=== PATIENT | male | born 1980 | race Caucasian/White ===

== ENCOUNTER 2020-02-11 19:50 | Emergency (ER) | payer BC, OTHER ==
[~2020-02-11] VITALS: Ht 188 cm; Wt 104.0 kg
[2020-02-11] MEDS ORDERED: ONDANSETRON 2MG/ML, 2ML ONE (20:21)
[2020-02-11] MEDS ORDERED: MORPHINE SULFATE 4 MG/ML, 1ML ONE ×2 (20:21→20:57)
[2020-02-11] MEDS ORDERED: ONDANSETRON 2MG/ML, 2ML IVPush ONE (20:30)
[2020-02-11] MEDS ORDERED: SODIUM CHLORIDE FLUSH 10ML SYR IVF ONE (20:30)
[2020-02-11] MEDS ORDERED: LIDOCAINE 2%, 10ML INFIL ONE (20:30)
[2020-02-11] MEDS ORDERED: SODIUM CHLORIDE 0.9% 1,000ML IVBOLUS ONE (20:30)
[2020-02-11] MEDS ORDERED: PROPOFOL 10 MG/ML, 20ML IVPush ONE (20:30)
[2020-02-11] MEDS ORDERED: PROPOFOL 10 MG/ML, 20ML ONE (20:39)
[2020-02-11] MEDS: MORPHINE SULFATE 4 MG/ML, 1ML IVPush PRN ×2 (20:39→21:03)
[2020-02-11] MEDS ORDERED: LIDOCAINE-MPF 2% ,5ML ONE (20:42)
[2020-02-11] MEDS ORDERED: DIPH,PERTUSS(ACELL),TET VAC/PF 0.5 ML IM-VACC ONE ×2 (21:00→21:02)
[2020-02-11 21:53] VITALS: BP 130/74
== END 2020-02-11 21:56 | disposition home or self-care (01) ==
LOC: ED 21:55
DX: S43.084A Other dislocation of right shoulder joint, initial encounter (principal); W18.30XA Fall on same level, unspecified, initial encounter; Y93.89 Activity, other specified; Y92.410 Unspecified street and highway as the place of occurrence of the external cause; Y99.8 Other external cause status
CPT/HCPCS: 23650; 73030; 90471; 90715; 96374; 96375; 99284; J2270; J2405; J7030